=== PATIENT | female | born 1990 | race Caucasian/White ===

== ENCOUNTER 2017-01-28 17:52 | Emergency (ER) | payer OTHER ==
[~2017-01-28] VITALS: Ht 162.6 cm; Wt 98.6 kg
[2017-01-28 17:56] VITALS: BP 128/62; RESP 18; O2SAT 100
[2017-01-28] MEDS ORDERED: AZIT500T5 PO (18:01)
--- NOTE | 2017-01-28 19:00 | ED.REPORT ---
HPI-General Illness Date of Service Jan 28, 2017 ED Provider: Hunter Munoz MD Patient is a 26 year old female who presents to the ED complaining of a sore throat onset 2 days ago. Associated symptoms include pain with swallowing. She denies fever, difficulty breathing, cough, or any other symptoms. Her last period was 1 mo ago and she denies any chance of . She has had similar symptoms a few years ago and was dx with strep. Nursing Notes Stated Complaint: SORE THROAT Chief Complaint: ENT & Mouth Nursing Notes Reviewed: Yes Allergies: Coded Allergies: Penicillins (Verified Allergy, Unknown, 01/28/17) amoxicillin (Verified Allergy, Unknown, 01/28/17) Scheduled Azithromycin (Azithromycin) 500 Mg Tablet 500 MG PO DAILY General Time Seen by MD: 17:59 Chief Complaint Sore throat Hx Obtained From: Patient Arrived By: Walk-in Sudden in Onset?: Yes Onset Occurred: 2 days ago Similar Sx Previous: Yes Past Medical History Past Medical History Healthy Past Surgical History Denies Social History Other Social History: Good social support Ambulatory Status Independent Review of Systems - trouble breathing + Pain with swallowing Full Review of Systems Constitutional: Denies: Chills, Fever Ears / Nose / Throat: Reports: Sore throat Respiratory: Denies: Non-productive cough Complete sys rev & neg: except as marked. Physical Exam Vital Signs Vital Signs Date Time Temp Pulse Resp B/P Pulse Ox O2 Delivery O2 Flow Rate FiO2 01/28/17 17:56 37.4 109 18 128/62 100 Room Air Initial VS: Reviewed General/Constitutional: Well-developed, Well-nourished Head / Eyes: Atraumatic, Normocephalic Respiratory: Breath sounds normal, Clear to auscultation, No respiratory distress Cardiovascular: Regular rate & rhythm, Heart sounds normal, Intact distal pulses Abdomen / GI: Soft, Non-tender, No distention Skin: Warm, Dry Neurologic: Alert, Oriented, Nonfocal Psychiatric: Mood/affect normal, Behavior normal, Normal thought content ENT: Airway patent, No pooling of secretions Pharynx / Tonsils / Uvula: Positive: Tonsillar exudate L, Tonsillar exudate R No tonsillar swelling No drooling Neck: Full range of motion Mild tender anterior cervical adenopathy Re-Eval/Medical Decision Med Decision/Clinical Course Patient is a 26 year old female who presents to the ED complaining of a sore throat onset 2 days ago. Associated symptoms include pain with swallowing. She denies fever, difficulty breathing, cough, or any other symptoms. Her last period was 1 mo ago and she denies any chance of . She has had similar symptoms a few years ago and was dx with strep. Through the emergency department she is afebrile, hemodynamically stable and in no apparent distress. Examination reveals bilateral whitish tonsillar exudate without any evidence of peritonsillar abscess. She is tolerating her secretions and is without stridor or any evidence of airway compromise. Patient meets [facility] dysuria for empiric treatment of strep throat. Given that she is allergic to penicillin I prescribed a course of azithromycin. Prior to discharge follow-up and return precautions were reviewed in detail with the patient who verbalized understanding and agreement with the plan. The patient was discharged in stable condition. Time of Eval: 17:59 Re-Evaluation/Progress Note: Discussed plan for discharge. Patient understands and agrees with plan. All questions addressed at this time. Counseled Regarding: Diagnosis, Lab results, Need for follow-up, When/why to return to ED Discharge & Departure Primary Impression: Strep pharyngitis Additional Impressions: Streptococcal sore throat Dysphagia Dysphagia type: oral phase Qualified Code: R13.11 - Dysphagia, oral phase Cervical adenopathy Disposition: Home Discharge Condition All VS Reviewed: Yes Condition: Improved Additional Instructions: Thank you for seeking care at the emergency room. It is difficult for us to make definitive diagnoses in the ED but we believe that you are experiencing strep throat. You will be discharged with a prescription for antibiotics. Please take them as prescribed. You should follow-up with your primary doctor in the next week. You should return to the ED immediately if you develop worsening sore throat, fevers, chills, difficulting breathing, difficulting swallowing, or any other concerning signs or symptoms. Thank you for letting us partake in your care today. Referrals: Keron Martínez DO (PCP) Scribe Attestation Portions of this note were transcribed by Beth Gilliam. I, Dr. Munoz personally performed the history, physical exam and medical decision-making; I reviewed and confirmed the accuracy of the information in the transcribed note. Signed by: Beth Gilliam 01/28/17, 1911 copies to: Keron Martínez DO; Raegan Elias MD, Beck O MD Jan 28, 2017 18:59 BETH GILLIAM Jan 28, 2017 19:10
== END 2017-01-28 18:34 | disposition home or self-care (01) ==
LOC: SED 18:00
DX: J02.0 Streptococcal pharyngitis (principal); Z88.0 Allergy status to penicillin; Z88.1 Allergy status to other antibiotic agents